=== PATIENT | male | born 1965 | race Caucasian/White ===

== ENCOUNTER 2018-08-27 20:24 | Emergency (ER) | payer MEDICAID ==
[~2018-08-27] VITALS: Ht 177.8 cm; Wt 75.7 kg
[2018-08-27 20:34] VITALS: Ht 177.8 cm; Wt 75.7 kg
[2018-08-27 22:39] LABS: microscopic required? NO
[2018-08-27 22:52] LABS: UA SPECIFIC GRAVITY <=1.005 (1.005-1.035); urine erythrocyte NEGATIVE (NEGATIVE)
[2018-08-27 22:52] LABS: BASOPHIL % 0.2 % (0-2); PLATELET COUNT 252 x10^3mcL (130-400); RED CELL DISTRIBUTION WIDTH 13.3 % (11.5-14.5)
[2018-08-27 23:14] LABS: CALCIUM 9.4 mg/dL (8.5-10.1); CARBON DIOXIDE 28.1 mmol/L (21-32); CHLORIDE SERUM 94 mmol/L (98-107); CREATININE SERUM 1.1 mg/dL (0.7-1.3); GFR1 > 60 mL/min; GLUCOSE SERUM 377 mg/dL (74-106); POTASSIUM SERUM 4.2 mmol/L (3.5-5.1); SODIUM SERUM 134 mmol/L (136-145)
[2018-08-27 23:15] LABS: T3 TOTAL 0.96 ng/mL
[2018-08-27 23:20] LABS: ALBUMIN 3.9 g/dL (3.4-5.0); ALKALINE PHOSPHATASE 102 U/L (46-116); ALT/SGPT 27 U/L (16-63); AST/SGOT 16 U/L (15-37); BILIRUBIN TOTAL 1.1 mg/dL (0.20-1.00); C REACTIVE PROTEIN 4.2 mg/dL (<=0.9); TOTAL PROTEIN, SERUM 7.9 g/dL (6.4-8.2)
[2018-08-27 23:43] LABS: CK-MB 1.4 ng/mL (0-3.6); FREE T4 0.8 ng/dL (0.76-1.46); FREE THYROXINE INDEX 2.8 ug/dL (1.4-4.5); T4(THYROXINE) 8.5 ug/dL (4.7-13.3)
[2018-08-27 23:53] LABS: ERYTHROCYTE SED RATE 9 mm/hr (0-20)
[2018-08-28 02:08] VITALS: BP 123/84
== END 2018-08-28 02:08 | disposition short-term general hospital (02) ==
LOC: ED 20:24
PROVIDERS: Specialist
DX: J36 Peritonsillar abscess (principal); R65.20 Severe sepsis without septic shock; E11.65 Type 2 diabetes mellitus with hyperglycemia; E86.0 Dehydration
CPT/HCPCS: 82962; 84439; 87804; J0561; J1100; J1885; J3490; J7030; J7040; Q0092; Q9967

== ENCOUNTER 2018-08-29 01:16 | Emergency (ER) | payer MEDICAID ==
[~2018-08-29] VITALS: Ht 177.8 cm; Wt 76.2 kg
[2018-08-29 01:45] VITALS: Ht 177.8 cm; Wt 76.2 kg
[2018-08-29 04:16] LABS: BASOPHIL % 0.3 % (0-2); PLATELET COUNT 226 x10^3mcL (130-400); RED CELL DISTRIBUTION WIDTH 12.6 % (11.5-14.5)
[2018-08-29 04:24] LABS: CALCIUM 9.3 mg/dL (8.5-10.1); CARBON DIOXIDE 27.5 mmol/L (21-32); CHLORIDE SERUM 99 mmol/L (98-107); GFR1 > 60 mL/min; GLUCOSE SERUM 402 mg/dL (74-106); POTASSIUM SERUM 3.8 mmol/L (3.5-5.1); SODIUM SERUM 136 mmol/L (136-145)
[2018-08-29 04:29] LABS: ALKALINE PHOSPHATASE 113 U/L (46-116); ALT/SGPT 21 U/L (16-63); AST/SGOT 14 U/L (15-37); BILIRUBIN TOTAL 1.3 mg/dL (0.20-1.00); TOTAL PROTEIN, SERUM 7.6 g/dL (6.4-8.2)
[2018-08-29 07:01] VITALS: BP 159/104
== END 2018-08-29 07:01 | disposition short-term general hospital (02) ==
LOC: ED 01:16
PROVIDERS: Emergency Medicine
DX: J36 Peritonsillar abscess (principal); E11.65 Type 2 diabetes mellitus with hyperglycemia
CPT/HCPCS: J2543; J2930; J7040; Q9967